=== PATIENT | male | born 1985 | race Caucasian/White ===

== ENCOUNTER 2016-10-19 00:45 | Inpatient (IN) | payer OTHER ==
[~2016-10-19] VITALS: Ht 175.3 cm; Wt 88.5 kg
[2016-10-19 01:46] LABS: EOSINOPHIL (%) 0.8 % (0-5); EOSINOPHIL COUNT 0.1 K/uL (0-0.3); HEMATOCRIT 43.5 % (38.0-50.0); IMMATURE GRANULOCYTE (%) 0.5 % (0.0-0.7); INSTRUMENT ABS NEUTROPHIL CT 5.3 K/uL; LYMPHOCYTE COUNT 2.1 K/uL (1.0-2.8); MCH 31.2 PG (29.0-34.0); MCV 91.6 FL (86-99); MEAN PLAT.VOLUME 10.1 uM^3 (9.0-12.4); MONOCYTE (%) 4.9 % (3-12); MONOCYTE COUNT 0.4 K/uL (0-0.8); NEUTROPHIL (%) 66.9 % (45-76); NEUTROPHIL COUNT 5.3 K/uL (1.8-6.4); PLATELET COUNT 232 K/uL (156-360); RBC DIS.WIDTH-CV 11.7 % (11.8-14.6); RBC DIS.WIDTH-SD 39.4 % (39-53); RED BLOOD COUNT 4.75 M/uL (4.00-5.50)
[2016-10-19 01:55] LABS: CHLORIDE 107 mEq/L (99-109); POTASSIUM 3.7 mEq/L (3.7-5.4); SODIUM 144 mEq/L (136-147)
[2016-10-19 01:57] LABS: GLUCOSE 104 mg/dL (70-99)
[2016-10-19 01:58] LABS: ANION GAP 17 MEQ/L (2-14)
[2016-10-19 02:00] LABS: SERUM ETHYL ALCOHOL 263 mg/dL
[2016-10-19 02:01] LABS: GFR ESTIMATE (CALCULATED) > 59 mL/min/
[2016-10-19 02:02] LABS: UREA NITROGEN (BUN) 11 mg/dL (9-23)
[2016-10-19 02:15] LABS: AMPHETAMINE NEGATIVE (500 ng/mL); BARBITURATES NEGATIVE (200 ng/mL); BENZODIAZEPINES NEGATIVE (150 ng/mL); COCAINE NEGATIVE (150 ng/mL); INTERNAL CONTROLS VALID? YES; METHADONE NEGATIVE (200 ng/mL); METHAMPHETAMINE NEGATIVE (500 ng/mL); OPIATES (MORPHINE) NEGATIVE (100 ng/mL); OXYCODONE NEGATIVE (100 ng/mL); PHENCYCLIDINE NEGATIVE (25 ng/mL); PROPOXYPHENE NEGATIVE (300 ng/mL); THC CANNABINOIDS NEGATIVE (50 ng/mL); TRICYCLIC ANTIDEPRESSANTS NEGATIVE (300 ng/mL)
[2016-10-19 12:53] VITALS: BP 131/85
[2016-10-19 13:27] VITALS: BP 131/85
[2016-10-19 15:35] VITALS: BP 122/68
[2016-10-20 07:38] VITALS: BP 131/74
[2016-10-20 15:30] VITALS: BP 128/87
[2016-10-21 07:51] VITALS: BP 137/81
[2016-10-21] MEDS ORDERED: ZOLOFT100 MG PO (09:17)
== END 2016-10-21 13:22 | disposition home or self-care (01) | DRG 881 ==
LOC: EME → EDBD 00:45 → 1WEST 11:45 → EDOF 11:45 → 1WEST 12:51
PROVIDERS: Emergency Medicine
DX: F43.21 Adjustment disorder with depressed mood (principal); F10.229 Alcohol dependence with intoxication, unspecified; F17.200 Nicotine dependence, unspecified, uncomplicated; S00.01XA Abrasion of scalp, initial encounter; Z79.899 Other long term (current) drug therapy; V49.3XXA Car occupant (driver) (passenger) injured in unspecified nontraffic accident, initial encounter; S01.01XA Laceration without foreign body of scalp, initial encounter; Z88.0 Allergy status to penicillin; Z63.5 Disruption of family by separation and divorce; Y90.8 Blood alcohol level of 240 mg/100 ml or more
CPT/HCPCS: 70450; 72125; 80048; 85025; 90839; 99281; 99285; G0480